=== PATIENT | male | born 1955 ===

== ENCOUNTER 2024-01-05 09:36 | Outpatient (REF) | payer OTHER, SELFPAY ==
--- NOTE | ~2024-01-05 | FL_ITS ---
EXAMINATION: Modified Barium Swallow CLINICAL INFORMATION: Dysphagia. COMPARISON: None. TECHNIQUE: Modified barium swallow was performed under lateral fluoroscopy with patient in standing position. Barium mixed with solids and liquids of different consistencies was administered by the speech pathologist. Examination was recorded in the fluoroscopy suite. FINDINGS: Aspiration was observed with thin and nectar thick consistency barium. FLUOROSCOPY TIME: 2 minutes 47 seconds Number of Spot Images: N/A DOSE AREA PRODUCT: [id number] uGy-m2 (microgray-meter squared) FL/FL barium swallow modified IMPRESSION: Aspiration was observed with thin and nectar thick consistency barium. Refer to the speech therapy report for further clarification This procedure was performed by Krishan Muller PA-C, and supervised by Dr. Hewitt
--- NOTE | 2024-01-05 13:22 | MHC.SL.IMP ---
Date of Plan of Treatment: 01/05/24 Onset of Symptoms/Illness: 12/25/21 Date Treatment Started: 01/05/24 Admitting Diagnosis: Dysphagia Primary Speech & Language Diagnosis: R13.12 Oropharyngeal Phase Dysphagia Secondary Speech & Language Diagnosis: R41.841 Cognitive communication disorder Reason for Today's Visit: 72033 Modified Barium Swallow Study Pre-evaluation Dietary Consistencies: Regular Pre-evaluation Liquid Consistency: Thin Pre-evaluation Medication Administration: Unknown Oral Motor Exam Facial Symmetry: Normal for Patient Symmetrical Facial Movement: Oral-Facial Facial Miscellaneous Observations: Oral Expression Ability: Severe Impairment Is patient able to manage secretions?: Yes Is patient able to produce volitional cough?: Yes Food and Liquid Trials: Oral Impairment: Lip Closure: 1=Interlabial escape; no progression to anterior tip Oral Impairment: Tongue Control During Bolus Hold: 0=Cohesive bolus between tongue to palatal seal Oral Impairment: Bolus Preparation/Mastication: 2=Disorganized chewing/mashing with solid pieces of bolus Oral Impairment: Bolus Transport/Lingual Motion: 1= Delayed initiation of tongue motion Oral Impairment: Oral Residue: 2=Residue collection on oral structures Oral Impairment:Initiation of Pharyngeal Swallow: 3=Bolus head in pyriforms Pharyngeal Impairment: Soft Palate Elevation: 0=No bolus between soft palate (SP)/pharyngeal wall (PW) Pharyngeal Impairment: Laryngeal Elevation: 1=Partial thyroid cartilage/arytenoids to epiglottic petiole movement Pharyngeal Impairment: Anterior Hyoid Excursion: 1=Partial anterior movement Pharyngeal Impairment: Epiglottic Movement: 0=Complete inversion Pharyngeal Impairment: Laryngeal Vestibular Closure:: 2=None: No inversion Pharyngeal Impairment: Pharyngeal Stripping Wave: 1=Present: diminished Pharyngeal Impairment: Pharyngeal Contraction: Did not test Pharyngeal Impairment: Pharyngoesophageal Segment Openin=Partial distention/partial duration: partial obstruction of flow Pharyngeal Impairment: Tongue Base (TB) Retraction: 2=Narrow column of contrast/air between TB and posterior PW Pharyngeal Impairment: Pharyngeal Residue: 2=Collection of residue within or on pharyngeal structures Pharyngeal Impairment: Esophageal Clearance Upright Position: Did not test Impressions and Recommendations Clinical Observations: Modified Barium Swallow Study Fluoroscopic Evaluation of Swallowing Function CPT Code 74726 Evaluation Year: 2023 Reason for Study: Dysphagia, worsening cough. Referring Physician: Mayito Luu MD Evaluating Clinician: Juanjo Winters MA, CCC-HELP DESK SUPPORT SPECIALIST Study Number: 1 Status: Outpatient, Ambulatory/Assisted Age: 69 Gender: Male Medical History: Multiple CVA?s (most recent 2014) ETOH (in recovery) L-lingual hernia ASCVD risk Overweight High risk heterosexual behavior Hypercholesterolemia Cocaine abuse (remote) Weight loss Kwashiorkor CKD HTN Depression Failure to thrive Year of Onset or Diagnosis: 2021 Current (pre-evaluation) Intake/Diet: Route: PO Diet Grade: Regular Liquid Consistencies: Thin Pre-Study Functional Oral Intake Scale (FOIS): 6- Total oral intake with no special preparation, but must avoid specific foods or liquid items Pain: None reported at time of study Special Needs: Non-verbal, understands well Barriers to Learning: Frontal-lobe dysfunction (s/p Stroke) SUBJECTIVE: Mr. Oleary arrives with his Brother. He is non-verbal in our interaction, but appears to understand what is said to him. He was able to follow directions for bolus hold, chin tuck, and secondary swallow. He attempted, but was unsuccessful in clearing his throat on command. His Brother reports worsening cough with increased sputum production, particularly when bathing. He also reports that he ?sneaks? thin liquids (sodas). He was not aware of [place]-Thick restriction as cited from his MBSS Radiology report from 2021. The Brother requests HELP DESK SUPPORT SPECIALIST call to speak with Pt?s Sister and HCP, María about results and recommendations. OBJECTIVE: Time-out: performed at 10:35 Evaluation Start: 10:40; Stop: 10:50 Patient Positioning: Seated 70-90 degrees Viewing Planes: LATERAL ONLY Contrast: MBSImP? Standardized Protocol using commercially prepared, standardized Barium viscosities, including: Varibar? THIN LIQUID (40% w/v, <15 cps) , Varibar? NECTAR (40% w/v, <150-450 cps) , Varibar? PUDDING (40% w/v, <3478-9179 cps) , 1/2 Shortbread Cookie (1 x1 x.25 ) MBSImP ID: [id number] MBSImP Results: Lip closure for intraoral bolus containment resulted in interlabial escape, without progression to the anterior lip. Tongue control during bolus hold maintained a cohesive bolus held between tongue to palate seal. Bolus preparation and mastication demonstrated disorganized chewing/mashing with solid pieces of the bolus unchewed. Bolus transport/lingual motion demonstrated delayed initiation of tongue motion. Oral residue was a collection on oral structures. Initiation of the pharyngeal swallow occurred when the bolus head was in the pyriform sinuses. Soft palate elevation resulted in no bolus between the soft palate and the pharyngeal wall. Laryngeal elevation was decreased, with partial superior movement of the thyroid cartilage/partial approximation of the arytenoids to the epiglottic petiole. Anterior hyoid excursion demonstrated partial anterior movement. Epiglottic movement resulted in complete inversion. Laryngeal vestibular closure was absent, resulting in a wide column of air/contrast within the laryngeal vestibule at the height of the swallow. Pharyngeal stripping wave was present, but diminished. Pharyngeal contraction could not be determined due to logistical reasons not related to physiologic impairment. Pharyngoesophageal segment opening demonstrated partial distension/partial duration, with partial obstruction of bolus flow. Tongue base retraction allowed a narrow column of contrast or air between the retracted tongue base and the posterior pharyngeal wall. Pharyngeal residue was a collection of residue within or on pharyngeal structures. Esophageal clearance in the upright position could not be assessed due to logistical reasons not related to physiologic impairment. Oral Impairment Score: 8 Pharyngeal Impairment Score: 10 (absence of score, component 13) Esophageal Impairment Score: --- (absence of score, component 17) Laryngeal Penetration and Aspiration: Aspiration was observed in today's study. [place]-thick, Thin Contrast entered the airway, passed below the vocal folds, and no efforts were made to eject. ASSESSMENT: The patient's performance in today's study indicated impairment in swallowing as outlined in the table below: Initiation of the pharyngeal swallow, Laryngeal elevation, Anterior hyoid excursion, Laryngeal vestibular closure, and Tongue base retraction contributed to aspiration and penetration. SUMMARY: Sandro demonstrated aspiration on teaspoon amounts of Thin Liquids with Chin Tuck, and [place]-Thick Liquids without chin tuck. He tolerated [place]-Thick Liquids with cues to tuck his chin via teaspoon amount and self-administered small sip. He tolerated Puree Solids and Soft and Bite-sized solids with delayed swallow initiation and multiple swallows needed to clear his oral cavity and vallecular space. He was able to clear his pharyngeal cavity with a cued secondary swallow with chin tuck. He went on to tolerate [place]-Thick Liquids via self-administered small sip with cues for chin tuck with mild residue present in his pharyngeal cavity. These results are not significantly different from his results reported from an MBSS conducted at [facility] in 2021. He is presenting with a worsening cough and increased difficulty swallowing by family report. He likely has developing pneumonia from consistent aspiration and will need medical intervention including antibiotics and Pulminory consult for Respiratory Therapy. HELP DESK SUPPORT SPECIALIST spoke with his Sister and HCP the day of the study and shared these findings and recommendations. She agrees to attend follow-up visits as an outpatient to go over them in more detail and with more support. PLAN: Intake Recommendations: Route: PO Diet Grade: IDDSI Levels: 6-Soft & Bite-Sized Liquid Consistencies: [place] Post-Study Functional Oral Intake Scale (FOIS): 5- Total oral intake of multiple consistencies requiring special preparation RECOMMENDATIONS: Diet consistency change to Soft & Bite-Sized (IDDSI Level 5) and [place]-Thick Liquids. Compensatory strategy for Liquids, Chin Tuck Compensatory strategy for Solids, Swallow twice Standard aspiration precautions include: - Sit upright with all PO intake - Meds Whole or Crushed with Puree - No straws - No mixed consistencies - Oral care before and after meals - Small bites/sips - Alternate bites/sips - Slow pace to meals. Pt/Caregivers are encouraged to attend Outpatient HELP DESK SUPPORT SPECIALIST follow-up to go over these recommendations. Therapy Recommendations: Therapy will be initiated The following compensatory strategies and/or therapeutic exercises will be part of the upcoming therapy/management plan: [place]-thick Liquid Bolus Volume Change Chin Tuck Additional Swallow(s) per Bolus No Straws Prognosis for Improvement: The prognosis for the patient to meet nutritional needs by mouth is fair based on degree of impairment, level of motivation. Patient's Personal Goals: Safest, least restrictive diet. Senior Care Goals: ? The patient will tolerate the least restrictive diet with a safe/efficient swallow to maintain adequate nutrition and hydration. ? The patient and/or family will participate in further education for swallowing goals. Short Term Goals: ? Diet - The patient will tolerate a Soft & Bite-sized (IDDSI L5) diet with nectar thick liquids without signs or symptoms of penetration/aspiration 90% of the time. - The patient will participate in therapeutic PO trials with the HELP DESK SUPPORT SPECIALIST. ? Guidelines - The patient will comply with/recall the following guidelines/strategies 90% of the time with minimal cuing: [place]-thick Liquid, Bolus Volume Change, Chin Tuck, Additional Swallow(s) per Bolus, No Straws. ? Education - The patient, family will verbalize/demonstrate understanding of the results of this evaluation, the above recommendations, and the swallowing guidelines. Clinician - Supplemental, Miscellaneous Communication: It is important to note MBSS objective studies are snapshots in time and Patient function might vary with factors such as time of day or concomitant medical conditions. For this reason, the final treatment plan for this patient should rest with their medical care team. Additional recommendations should be considered with the totality of the Patient in mind. Thank for the opportunity to participate in the care of this patient. If you have any questions about the content of this report, please contact the [facility] at [facility]. Education: Education regarding findings from today's study and plans for therapy were provided to through Verbal Instruction. Understanding was expressed by the . Liquid Intake Recommendation: [place] Thick Liquid Intake Strategies: Unrestricted Dietary Recommendations: Chopped/Advanced (NDD3) Medication Administration: Please contact the pharmacy regarding appropriate crushable or liquid drug formulations that are available whenever modified delivery is recommended. Compensatory Strategies Recommended: Supervision during eating and or drinking: Recommended Treatments: Recommendation for Speech Therapy: Text Comment: Frequency/Duration: 1 x week x 6-8 weeks Date Range for Service Requested: 01/05/24 - 03/07/24 Timeline to reassess: PRN Reservations And Ticketing Agent Clinician/Clinical Fellow: No Supervisory Statement: N/A Speech Language Pathologist: Juanjo Winters M.A., CCC-HELP DESK SUPPORT SPECIALIST
== END 2024-01-05 09:37 | disposition home or self-care (01) ==
LOC: HO.XRAY 09:36
PROVIDERS: PCP Internal Medicine; Visit Provider Internal Medicine
DX: R13.12 Dysphagia, oropharyngeal phase (principal); R41.841 Cognitive communication deficit
CPT/HCPCS: 74230; 92611

== ENCOUNTER → 2024-01-05 09:44 | Outpatient (BNV) | payer OTHER, SELFPAY | PROVIDERS: PCP Internal Medicine; Visit Provider Physician Assistant Surgical | DX: R13.10 Dysphagia, unspecified (principal) | CPT/HCPCS: 74230 ==

== ENCOUNTER 2024-02-14 10:30 | Outpatient (RCR) | payer OTHER, SELFPAY ==
--- NOTE | 2024-02-21 16:04 | MHC.SL.SOA ---
Referring Provider: Dr. Mayito Luu Reason for Referral: Aspiration Date of Plan of Treatment:01/05/24 Onset of Symptoms/Illness:12/25/21 Date Treatment Started:01/05/24 Medical Diagnosis:Oropharyngeal Dysphagia Primary Speech Language Diagnosis:R13.10 Dysphagia Secondary Speech Language Diagnosis: Number of Authorized Visits Remaining: Reason for Visit:79070 Dysphagia Treatment Subjective:He arrives today for his second and final follow-up visit. We spoke with his Sister over the phone and confirmed that Sandro will not be compliant to his recommendations. Objective: - [employer] STUDIES PROFESSOR reiterated MBSS finding and recommendations for [place]-Thick Liquids with Chin Tuck and Soft & Bite-Sized Solids (IDDSI Level 6). - Pt and Brother report that Sandro has not been compliant with recommendations. - [place] STUDIES PROFESSOR spoke with Pt's Sister, María, on the phone during the visit and confirmed that they are declining service. Assessment:Sandro had a recent MBSS showing silent aspiration on Thin Liquids and [place]-Thick Liquids. Aspiration was eliminated with use of a Chin Tuck with [place]-Thick Liquids. [employer] STUDIES PROFESSOR attempted to provide the Pt and his caregivers education and treatment, however the Pt was not compliant and did not wish to pursue services. [employer] STUDIES PROFESSOR reiterated options for his safest, least restrictive diet prior to discharge. Notes: Plan: Goal # : ? Diet - The patient will tolerate a Soft & Bite-sized (IDDSI L5) diet with nectar thick liquids without signs or symptoms of penetration/aspiration 90% of the time. - The patient will participate in therapeutic PO trials with the [place] STUDIES PROFESSOR. Status of Goal: Discharge Goal Goal # : ? Guidelines - The patient will comply with/recall the following guidelines/strategies 90% of the time with minimal cuing: [place]-thick Liquid, Bolus Volume Change, Chin Tuck, Additional Swallow(s) per Bolus, No Straws. Status of Goal: Discharge Goal Seen by: Graduate/Clinical Fellow: No Supervisory Statement: f_Reg Query Last Value , MHC.AU.SIGNATUR Speech Language Pathologist: Juanjo Winters M.A., [facility]-[employer] STUDIES PROFESSOR
== END 2024-02-25 09:00 | disposition home or self-care (01) ==
LOC: HO.SH 10:30
PROVIDERS: PCP Internal Medicine; Visit Provider Internal Medicine
DX: I69.391 Dysphagia following cerebral infarction (principal)
CPT/HCPCS: 92526